=== PATIENT | male | born 1950 | race Caucasian/White ===

== ENCOUNTER 2017-08-09 14:48 | Inpatient (IN) | payer MEDICARE, BC ==
[2017-08-09] MEDS ORDERED: 0.9 % SODIUM CHLORIDE 1,000 ML BAG IV ONE (15:50)
[2017-08-09 16:42] LABS: BASO % 0.3 % (0-6); EOS % 1.4 % (0-6); GRAN % 75.8 % (47-80); HEMATOCRIT 38.1 % (42.0-52.0); HEMOGLOBIN 13.5 gm/dl (14.0-18.0); LYMPH % 15.7 % (16-45); MEAN CELL VOLUME 94.5 fl (81-97); MEAN CORPUSCULAR HGB CONC 35.4 g/dl (32-36); MEAN PLATELET VOLUME 11.5 fl (7.4-10.4); MONO % 6.8 % (0-9); PLATELET COUNT 104 K/uL (130-400); RED BLOOD COUNT 4.03 M/uL (4.40-5.70); RED CELL DISTRIBUTION WIDTH 12.9 % (11.5-14.5); WHITE BLOOD COUNT W/O DIFF 3.7 K/uL (4.2-12.2)
[2017-08-09 16:45] LABS: MEAN CORPUSCULAR HEMOGLOBIN 33.4 pg (27-33)
[2017-08-09 16:53] LABS: ACETONE,SERUM NEGATIVE (NEGATIVE)
[2017-08-09 16:57] LABS: BLOOD UREA NITROGEN 56 mg/dL (8-23); CREATININE 2.2 mg/dL (0.7-1.2); EST GLOMERULAR FILTRATION RATE 32 mL/min
[2017-08-09] MEDS ORDERED: HUMULIN R 100 UNIT/ML VIAL SQ ONE (17:11)
[2017-08-09 17:13] LABS: GLUCOSE,RANDOM 589 mg/dL (74-109)
[2017-08-09 17:35] LABS: URINE APPEARANCE CLEAR; URINE BILIRUBIN NEGATIVE (NEGATIVE); URINE BLOOD NEGATIVE (NEGATIVE); URINE COLOR YELLOW; URINE KETONE NEGATIVE (NEGATIVE); URINE LEUKOCYTE ESTERASE NEGATIVE (NEGATIVE); URINE NITRITE NEGATIVE (NEGATIVE); URINE PROTEIN NEGATIVE (NEGATIVE); URINE UROBILINOGEN 0.2 E.U./dL (0.20 - 1.00)
[2017-08-09 17:37] LABS: URINE GLUCOSE (UA) >=1000 mg/dL (NEGATIVE)
[2017-08-09 17:51] LABS: CREATININE 2.1 mg/dL (0.7-1.2)
[2017-08-09] MEDS ORDERED: INSULIN REGULAR, HUMAN 100 UNIT in 0.9 % SODIUM CHLORIDE 100ML 100 ML IV SCH ×2 (18:30)
--- NOTE | 2017-08-09 18:40 | Emergency Department Record ---
History of Present Illness - General Chief complaint: Hypergylcemia Stated complaint: HIGH BLOOD SUGAR Time Seen by Provider: 08/09/17 15:48 Source: Patient Mode of Arrival: Ambulatory Limitations: No limitations - History of Present Illness Initial comments: pt went to his kidney transplant dr and discovered he had a blood sugar of 555 and was sent here. he has no hx of diabetes. he has had increased thirst and urination. he denies any symptoms of infection Onset/Timin -: Days(s) Severity: Moderate Associated Symptoms: Denies other symptoms - Related Data Home Medications Medication Instructions Recorded Confirmed Last Taken Amlodipine Besylate [Norvasc] 10 mg PO DAILY 08/09/17 08/09/17 Unknown Ascorbic Acid [Vitamin C] 500 mg PO DAILY 08/09/17 08/09/17 Unknown Aspirin [Adult Low Dose Aspirin EC] 81 mg PO DAILY 08/09/17 08/09/17 Unknown Atenolol [Atenolol] 100 mg PO DAILY 08/09/17 08/09/17 Unknown Calcitriol 0.25 mcg PO ASDIR 08/09/17 08/09/17 Unknown Cholecalciferol (Vitamin D3) 1,000 unit PO DAILY 08/09/17 08/09/17 Unknown [Vitamin D3] Febuxostat [Uloric] 40 mg PO DAILY 08/09/17 08/09/17 Unknown Lisinopril [Lisinopril] 40 mg PO DAILY 08/09/17 08/09/17 Unknown Magnesium Oxide [Magnesium] 250 mg PO DAILY 08/09/17 08/09/17 Unknown Mycophenolate Mofetil 500 mg PO BID 08/09/17 08/09/17 Unknown Omeprazole 20 mg PO DAILY 08/09/17 08/09/17 Unknown Pravastatin Sodium [Pravachol] 20 mg PO DAILY 08/09/17 08/09/17 Unknown Tacrolimus [Prograf] 0.5 mg PO QHS 08/09/17 08/09/17 Unknown Tacrolimus [Prograf] 1 mg PO DAILY 08/09/17 08/09/17 Unknown Allergies Allergy/AdvReac Type Severity Reaction Status Date / Time No Known Drug Allergies Allergy Verified 08/09/17 15:02 Travel Screening - Travel/Exposure Within Last 30 Days Have you traveled within the last 30 days?: No Review of Systems Reviewed: No additional complaints except as noted below Constitutional: Reports: As per HPI. Denies: Chills, Fever, Malaise, Night sweats, Weakness, Weight change Eyes: Reports: As per HPI. Denies: Eye discharge, Eye pain, Photophobia, Vision change ENT: Reports: As per HPI. Denies: Congestion, Dental pain, Ear pain, Epistaxis , Hearing loss, Throat pain Respiratory: Reports: As per HPI. Denies: Cough, Dyspnea, Hemoptysis, Stridor, Wheezes Cardiovascular: Reports: As per HPI. Denies: Arrhythmia, Chest pain, Dyspnea on exertion, Edema, Murmurs, Orthopnea, Palpitations, Paroxysmal nocturnal dyspnea, Rheumatic Fever, Syncope Endocrine: Reports: As per HPI. Denies: Fatigue, Heat or cold intolerance, Polydipsia, Polyuria Gastrointestinal: Reports: As per HPI. Denies: Abdominal pain, Constipation, Diarrhea, Hematemesis, Hematochezia, Melena, Nausea, Vomiting Genitourinary: Reports: As per HPI. Denies: Dysuria, Frequency, Hematuria, Incontinence, Retention, Testicular pain, Testicular mass, Urgency Musculoskeletal: Reports: As per HPI. Denies: Arthralgia, Back pain, Gout, Joint swelling, Myalgia, Neck pain Skin: Reports: As per HPI. Denies: Bruising, Change in color, Change in hair/ nails, Lesions, Pruritus, Rash Neurological: Reports: As per HPI. Denies: Abnormal gait, Confusion, Headache, Numbness, Paresthesias, Seizure, Tingling, Tremors, Vertigo, Weakness Psychiatric: Reports: As per HPI. Denies: Anxiety, Auditory hallucinations, Depression, Homicidal thoughts, Suicidal thoughts, Visual hallucinations Hematological/Lymphatic: Reports: As per HPI. Denies: Anemia, Blood Clots, Easy bleeding, Easy bruising, Swollen glands Past Medical History - SOCIAL HISTORY Smoking Status: Never smoker Alcohol Use: None Drug Use: None - RESPIRATORY Hx Respiratory Disorders: No - CARDIOVASCULAR Hx Cardio Disorders: No - NEURO Hx Neuro Disorders: No - GI Hx GI Disorders: No - Hx Genitourinary Disorders: Yes Hx Renal Disease: Yes (kidney transplant) - ENDOCRINE Hx Endocrine Disorders: No - MUSCULOSKELETAL Hx Musculoskeletal Disorders: No - PSYCH Hx Psych Problems: No - HEMATOLOGY/ONCOLOGY Hx Hematology/Oncology Disorders: No Family Medical History Any Significant Family History?: Yes Hx Kidney Disease: Mother, Brother/Sister Physical Exam - General General Appearance: Alert, Oriented x3, Cooperative, Mild distress - Head Head exam: Normal inspection - Eye Eye exam: Normal appearance, PERRL, EOMI Pupils: Normal accommodation - ENT ENT exam: Normal exam, Mucous membranes dry, Normal external ear exam, Normal orophraynx Ear exam: Normal external inspection. negative: External canal tenderness Nasal Exam: Normal inspection. negative: Discharge, Sinus tenderness Mouth exam: Normal external inspection, Tongue normal Teeth exam: Normal inspection. negative: Dental caries Throat exam: Normal inspection. negative: Tonsillar erythema, Tonsillar exudate - Neck Neck exam: Normal inspection, Full ROM. negative: Tenderness - Respiratory Respiratory exam: Normal lung sounds bilaterally. negative: Respiratory distress - Cardiovascular Cardiovascular Exam: Regular rate, Normal rhythm, Normal heart sounds - GI/Abdominal GI/Abdominal exam: Soft, Normal bowel sounds. negative: Tenderness - Rectal Rectal exam: Deferred - exam: Deferred - Extremities Extremities exam: Normal inspection, Full ROM, Normal capillary refill. negative: Tenderness - Back Back exam: Reports: Normal inspection, Full ROM. 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 ] Respiratory 13 16 Rate Blood Pressure 141/106 Blood Pressure 130/56 [Right Arm] Pulse Ox 97 99 Medical Decision Making - Lab Data Result diagrams: 08/09/17 16:35 08/09/17 17:31 Lab Results 08/09/17 08/09/17 08/09/17 Range/Units 16:35 16:35 16:35 WBC 3.7 L (4.2-12.2) K/uL RBC 4.03 L (4.40-5.70) M/uL Hgb 13.5 L (14.0-18.0) gm/dl Hct 38.1 L (42.0-52.0) % MCV 94.5 (81-97) fl MCH 33.4 H (27-33) pg MCHC 35.4 (32-36) g/dl RDW 12.9 (11.5-14.5) % Plt Count 104 L (130-400) K/uL MPV 11.5 H (7.4-10.4) fl Gran % 75.8 (47-80) % Lymphocytes % 15.7 L (16-45) % Monocytes % 6.8 (0-9) % Eosinophils % 1.4 (0-6) % Basophils % 0.3 (0-6) % VBG pH 7.30 L (7.33-7.43) Sodium 130 L (136-145) mmol/L Potassium 6.7 H* (3.4-4.5) mmol/L Chloride 96 L (98-107) mmol/L Carbon Dioxide 21.0 L (22-29) mmol/L Anion Gap 13.0 (7-16) BUN 56 H (8-23) mg/dL Creatinine 2.2 H (0.7-1.2) mg/dL Estimated GFR 32 mL/min Random Glucose 589 H* (74-109) mg/dL Calcium 10.8 H (8.8-10.2) mg/dL NT-Pro-B Natriuret Pep 406.30 H (<125) pg/mL Urine Color Urine Appearance Urine pH (5.0-8.0) Ur Specific [place] (1.002-1.030) Urine Protein (NEGATIVE) Urine Glucose (UA) (NEGATIVE) Urine Ketones (NEGATIVE) Urine Blood (NEGATIVE) Urine Nitrite (NEGATIVE) Urine Bilirubin (NEGATIVE) Urine Urobilinogen (0.20 - 1.00) E.U./dL Ur Leukocyte Esterase (NEGATIVE) Acetone, Qual Negative (NEGATIVE) 08/09/17 08/09/17 Range/Units 17:31 17:35 WBC (4.2-12.2) K/uL RBC (4.40-5.70) M/uL Hgb (14.0-18.0) gm/dl Hct (42.0-52.0) % MCV (81-97) fl MCH (27-33) pg MCHC (32-36) g/dl RDW (11.5-14.5) % Plt Count (130-400) K/uL MPV (7.4-10.4) fl Gran % (47-80) % Lymphocytes % (16-45) % Monocytes % (0-9) % Eosinophils % (0-6) % Basophils % (0-6) % VBG pH (7.33-7.43) Sodium 133 L (136-145) mmol/L Potassium 5.5 H (3.4-4.5) mmol/L Chloride 100 (98-107) mmol/L Carbon Dioxide 21.0 L (22-29) mmol/L Anion Gap 12.0 (7-16) BUN 54 H (8-23) mg/dL Creatinine 2.1 H (0.7-1.2) mg/dL Estimated GFR 34 mL/min Random Glucose 541 H* (74-109) mg/dL Calcium 10.1 (8.8-10.2) mg/dL NT-Pro-B Natriuret Pep (<125) pg/mL Urine Color Yellow Urine Appearance Clear Urine pH 6.0 (5.0-8.0) Ur Specific [place] 1.010 (1.002-1.030) Urine Protein Negative (NEGATIVE) Urine Glucose (UA) >=1000 mg/dl H (NEGATIVE) Urine Ketones Negative (NEGATIVE) Urine Blood Negative (NEGATIVE) Urine Nitrite Negative (NEGATIVE) Urine Bilirubin Negative (NEGATIVE) Urine Urobilinogen 0.2 (0.20 - 1.00) E.U./dL Ur Leukocyte Esterase Negative (NEGATIVE) Acetone, Qual (NEGATIVE) Disposition Disposition: Admit Clinical Impression: New onset type 2 diabetes mellitus Disposition: Still a Patient at [facility] Decision to Admit: Admit from ER Decision to Admit Date: 08/09/17 Decision to Admit Time: 18:31 Quality - Quality Measures Quality Measures: N/A - Blood Pressure Screening Does Patient Have Any of the Following: No Blood Pressure Classification: Hypertensive Reading Systolic Measurement: 141 Diastolic Measurement: 106 Screening for High Blood Pressure: < First Hypertensive BP, F/U Documented > [ [id number]] First Hypertensive Follow-up Interventions: Follow-up with rescreen GT 1 day and LT 4 weeks.
[2017-08-09] MEDS ORDERED: ACETAMINOPHEN 500 MG TABLET PO PRN (19:10)
[2017-08-09] MEDS ORDERED: CALCITRIOL 0.25 MCG PO SCH (19:10)
[2017-08-09] MEDS ORDERED: 0.9 % SODIUM CHLORIDE 1000ML 1,000 ML IV PRN (19:10)
[2017-08-09] MEDS ORDERED: MYCOPHENOLATE 500 MG PO SCH (19:45)
[2017-08-09 20:52] LABS: CREATININE 1.9 mg/dL (0.7-1.2)
[2017-08-09] MEDS ORDERED: OMEPRAZOLE 20 MG PO SCH (22:00)
[2017-08-09] MEDS ORDERED: PROGRAF 0.5 MG PO SCH (22:00)
[2017-08-09] MEDS ORDERED: ATENOLOL 50 MG TABLET PO SCH (22:00)
[2017-08-09] MEDS ORDERED: MAGNESIUM OXIDE 400 MG TABLET PO SCH (22:00)
[2017-08-09] MEDS ORDERED: SIMVASTATIN 10MG TABLET PO SCH (22:00)
[2017-08-09] MEDS ORDERED: PATIENT OWN MED: PO SCH (22:00)
[2017-08-09] MEDS ORDERED: ASPIRIN 81 MG TABEC PO SCH (22:00)
[2017-08-09] MEDS: MAGNESIUM 500 MG PO SCH (22:30)
[2017-08-09] MEDS: VITAMIN C 500 MG PO SCH (22:30)
[2017-08-09] MEDS: PRAVASTATIN 20 MG PO SCH (22:30)
[2017-08-09] MEDS: TACROLIMUS 0.5 MG MC SCH (22:30)
[2017-08-09] MEDS: ASPIRIN 81 MG PO SCH (22:30)
[2017-08-09] MEDS: MYCOPHENOLATE 500 MG PO SCH (22:30)
[2017-08-09] MEDS: ULORIC 40 MG PO SCH (22:30)
[2017-08-09] MEDS: OMEPRAZOLE 20 MG PO SCH (22:30)
[2017-08-09] MEDS: ATENOLOL 100 MG PO SCH (22:30)
[2017-08-09 22:35] LABS: CREATININE 1.9 mg/dL (0.7-1.2)
[2017-08-10] MEDS ORDERED: DEXTROSE 5 %-0.45 % NACL 1,000 ML IV PRN (01:04)
[2017-08-10] MEDS: LEVEMIR FLEXTOUCH 100 UNIT/ML INSULIN PEN SQ SCH ×2 (01:16→22:42)
[2017-08-10] MEDS ORDERED: DEXTROSE 50 % IVP 50 ML DISP.SYRIN IVP PRN (01:30)
[2017-08-10 01:35] LABS: CREATININE 1.8 mg/dL (0.7-1.2)
[2017-08-10] MEDS ORDERED: PANTOPRAZOLE SODIUM 40 MG TABLET PO SCH (07:00)
[2017-08-10 07:09] LABS: CREATININE 1.7 mg/dL (0.7-1.2)
[2017-08-10] MEDS ORDERED: LISINOPRIL 20 MG TABLET PO SCH (10:00)
[2017-08-10] MEDS ORDERED: ULORIC 40 MG PO SCH (10:00)
[2017-08-10] MEDS ORDERED: ATENOLOL 50 MG TABLET PO SCH (10:00)
[2017-08-10] MEDS ORDERED: ASPIRIN 81 MG TABEC PO SCH (10:00)
[2017-08-10] MEDS ORDERED: Non-Formulary MISC (Amlodipine Besylate [Norvasc] 10 MG) PO SCH (10:00)
[2017-08-10] MEDS ORDERED: AMLODIPINE BESYLATE 5MG TAB PO SCH (10:00)
[2017-08-10] MEDS ORDERED: PROGRAF 1 MG PO SCH (10:00)
--- NOTE | 2017-08-10 10:11 | History & Physical ---
History of Present Illness - Date of Service Date of Service for History & Physical: 08/10/17 - History of Present Illness Admitting Diagnosis: new onset diabetes History of Present Illness: Mr. 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 The patient does not have any history of diabetes mellitus and is not on steroids. He has noticed increasing thirst and urination over the past several weeks but denies any other symptoms. On arrival to the ED his serum glucose was > 500 and he had marked glucosuria but no ketones and normal anion gap. The patient was started on insulin drip with titration, IV fluids and admitted for further observation. Travel Screening - Travel/Exposure Within Last 30 Days Have you traveled within the last 30 days?: No - Travel/Exposure Within Last Year Have you traveled outside the [place] in the last year?: No - Additonal Travel Details Have you been exposed to anyone with a communicable illness?: No - Travel Symptoms Symptom Screening: None Review of Systems Constitutional: Reports: As per HPI. Denies: Chills, Fever, Malaise, Night sweats, Weakness, Weight change Eyes: Reports: As per HPI. Denies: Eye discharge, Eye pain, Photophobia, Vision change ENT: Reports: As per HPI. Denies: Congestion, Dental pain, Ear pain, Epistaxis , Hearing loss, Throat pain Respiratory: Reports: As per HPI. Denies: Cough, Dyspnea, Hemoptysis, Stridor, Wheezes Cardiovascular: Reports: As per HPI. Denies: Arrhythmia, Chest pain, Dyspnea on exertion, Edema, Murmurs, Orthopnea, Palpitations, Paroxysmal nocturnal dyspnea, Rheumatic Fever, Syncope Endocrine: Reports: As per HPI. Denies: Fatigue, Heat or cold intolerance, Polydipsia, Polyuria Gastrointestinal: Reports: As per HPI. Denies: Abdominal pain, Constipation, Diarrhea, Hematemesis, Hematochezia, Melena, Nausea, Vomiting Genitourinary: Reports: As per HPI. Denies: Dysuria, Frequency, Hematuria, Incontinence, Retention, Testicular pain, Testicular mass, Urgency Musculoskeletal: Reports: As per HPI. Denies: Arthralgia, Back pain, Gout, Joint swelling, Myalgia, Neck pain Skin: Reports: As per HPI. Denies: Bruising, Change in color, Change in hair/ nails, Lesions, Pruritus, Rash Neurological: Reports: As per HPI. Denies: Abnormal gait, Confusion, Headache, Numbness, Paresthesias, Seizure, Tingling, Tremors, Vertigo, Weakness Psychiatric: Reports: As per HPI. Denies: Anxiety, Auditory hallucinations, Depression, Homicidal thoughts, Suicidal thoughts, Visual hallucinations Hematological/Lymphatic: Reports: As per HPI. Denies: Anemia, Blood Clots, Easy bleeding, Easy bruising, Swollen glands Past Medical History - SOCIAL HISTORY Smoking Status: Never smoker Alcohol Use: None Drug Use: None - RESPIRATORY Hx Respiratory Disorders: No - CARDIOVASCULAR Hx Cardio Disorders: No - NEURO Hx Neuro Disorders: No - GI Hx GI Disorders: No - Hx Genitourinary Disorders: Yes Hx Renal Disease: Yes (kidney transplant) - ENDOCRINE Hx Endocrine Disorders: No - MUSCULOSKELETAL Hx Musculoskeletal Disorders: No - PSYCH Hx Psych Problems: No - HEMATOLOGY/ONCOLOGY Hx Hematology/Oncology Disorders: No Family Medical History Any Significant Family History?: Yes Hx Kidney Disease: Father, Brother/Sister H&P Meds/Allergies - Allergies Allergies: Allergies Allergy/AdvReac Type Severity Reaction Status Date / Time No Known Drug Allergies Allergy Verified 08/09/17 15:02 - Home Medications Home Medications Medication Instructions Recorded Confirmed Last Taken Amlodipine Besylate [Norvasc] 10 mg PO DAILY 08/09/17 08/09/17 Unknown Ascorbic Acid [Vitamin C] 500 mg PO DAILY 08/09/17 08/09/17 Unknown Aspirin [Adult Low Dose Aspirin EC] 81 mg PO DAILY 08/09/17 08/09/17 Unknown Atenolol [Atenolol] 100 mg PO DAILY 08/09/17 08/09/17 Unknown Calcitriol 0.25 mcg PO ASDIR 08/09/17 08/09/17 Unknown Cholecalciferol (Vitamin D3) 1,000 unit PO DAILY 08/09/17 08/09/17 Unknown [Vitamin D3] Febuxostat [Uloric] 40 mg PO DAILY 08/09/17 08/09/17 Unknown Lisinopril [Lisinopril] 40 mg PO DAILY 08/09/17 08/09/17 Unknown Magnesium Oxide [Magnesium] 250 mg PO DAILY 08/09/17 08/09/17 Unknown Mycophenolate Mofetil 500 mg PO BID 08/09/17 08/09/17 Unknown Omeprazole 20 mg PO DAILY 08/09/17 08/09/17 Unknown Pravastatin Sodium [Pravachol] 20 mg PO DAILY 08/09/17 08/09/17 Unknown Tacrolimus [Prograf] 0.5 mg PO QHS 08/09/17 08/09/17 Unknown Tacrolimus [Prograf] 1 mg PO DAILY 08/09/17 08/09/17 Unknown - Active Medications Active Medications: Current Medications Acetaminophen (Tylenol 500mg Tab) 1,000 mg PO Q6H PRN PRN Reason: PAIN/TEMP Dextrose () 50 ml IVP NOW PRN PRN Reason: hypoglycemica Insulin Human Regular 100 unit (/ Sodium Chloride) 101 mls @ 2.02 mls/hr IV TITRATE [facility]; 2 UNITS/HR PRN Reason: Protocol Last Titration: 08/10/17 05:06 Dose: 3.46 units/hr, 3.5 mls/hr Sodium Chloride () 1,000 mls @ 125 mls/hr IV .Q8H PRN PRN Reason: LARGE VOLUME IV Last Infusion: 08/10/17 01:14 Dose: 0 mls/hr Dextrose/Sodium Chloride () 1,000 mls @ 125 mls/hr IV .Q8H PRN PRN Reason: LARGE VOLUME IV Last Admin: 08/10/17 01:15 Dose: 125 mls/hr Insulin Detemir (Levemir Flextouch) 25 unit SQ QHS [facility] Last Admin: 08/10/17 01:16 Dose: 25 unit Non-Formulary Medication (Calcitriol [Calcitriol]) 0.25 mcg PO ASDIR [facility] Patient Own Med: (Mycophenylate 500mg) 1 each PO BID [facility] Last Admin: 08/09/17 22:30 Dose: 1 each Patient Own Med: (Atenolol 100mg) 1 each PO QHS [facility] Last Admin: 08/09/17 22:30 Dose: 1 each Patient Own Med: (Tacrolimus 0.5 Mg) 1 each MC QHS [facility] Last Admin: 08/09/17 22:30 Dose: 1 each Patient Own Med: (Uloric 40mg) 1 each PO QHS [facility] Last Admin: 08/09/17 22:30 Dose: 1 each Patient Own Med: (Omeprazole 20mg) 1 each PO QHS [facility] Last Admin: 08/09/17 22:30 Dose: 1 each Patient Own Med: (Aspirin 81mg) 1 each PO QHS [facility] Last Admin: 08/09/17 22:30 Dose: 1 each Patient Own Med: (Pravastatin 20mg) 1 each PO QHS [facility] Last Admin: 08/09/17 22:30 Dose: 1 each Patient Own Med: (Magnesium 500mg Po) 1 each PO QHS [facility] Last Admin: 08/09/17 22:30 Dose: 1 each Patient Own Med: (Vitamin C 500mg) 1 each PO QHS [facility] Last Admin: 08/09/17 22:30 Dose: 1 each Patient Own Med: (Tacrolimus 1mg) 1 each PO DAILY [facility] Patient Own Med: (Amlodipine 10mg) 1 each PO DAILY [facility] Patient Own Med: (Lisinopril 20mg) 1 each PO DAILY [facility] Patient Own Med: (Vitamin D-3 1000 Iu) 1 each PO DAILY [facility] Physical Exam - Vital Signs Vital Signs: Vital Signs - Last 24 Hrs Temp Pulse Resp BP Pulse Ox 08/10/17 08:18 98.5 F 53 L 18 132/62 96 08/10/17 04:12 98.6 F 49 L 18 132/65 96 08/10/17 01:00 51 L 18 138/74 95 08/09/17 22:00 56 L 18 150/65 96 08/09/17 21:00 18 - General General Appearance: Alert, Oriented x3, Cooperative, Mild distress Limitations: No limitations - Head Head exam: Normal inspection - Eye Eye exam: Normal appearance, PERRL, EOMI Pupils: Normal accommodation - ENT ENT exam: Normal exam, Mucous membranes dry, Normal external ear exam, Normal orophraynx Ear exam: Normal external inspection. negative: External canal tenderness Nasal Exam: Normal inspection. negative: Discharge, Sinus tenderness Mouth exam: Normal external inspection, Tongue normal Teeth exam: Normal inspection. negative: Dental caries Throat exam: Normal inspection. negative: Tonsillar erythema, Tonsillar exudate - Neck Neck exam: Normal inspection, Full ROM. negative: Tenderness - Respiratory Respiratory exam: Normal lung sounds bilaterally. negative: Respiratory distress - Cardiovascular Cardiovascular Exam: Regular rate, Normal rhythm, Normal heart sounds - GI/Abdominal GI/Abdominal exam: Soft, Normal bowel sounds. negative: Tenderness - Rectal Rectal exam: Deferred - exam: Deferred - Extremities Extremities exam: Normal inspection, Full ROM, Normal capillary refill. negative: Tenderness - Back Back exam: Reports: Normal inspection, Full ROM. Denies: Muscle spasm, Rash noted, Tenderness - Neurological Neurological exam: Alert, CN II-XII intact, Normal gait, Oriented X3 - Psychiatric Psychiatric exam: Normal affect, Normal mood - Skin Skin exam: Dry, Intact, Normal color, Warm Results - Labs Result Diagrams: 08/09/17 16:35 08/10/17 06:20 Labs Last 24 Hours: Laboratory Results - last 24 hr 08/09/17 08/09/17 08/09/17 19:38 20:20 21:44 VBG pH 7.37 Sodium 136 Potassium 4.8 H Chloride 102 Carbon Dioxide 18.0 L Anion Gap 16.0 BUN 52 H Creatinine 1.9 H Estimated GFR 38 POC Glucose 407 H 325 H Random Glucose 398 H Calcium 10.4 H 08/09/17 08/09/17 08/09/17 22:10 22:55 22:55 VBG pH 7.38 Sodium 137 Potassium 4.4 Chloride 103 Carbon Dioxide 19.0 L Anion Gap 15.0 BUN 50 H Creatinine 1.9 H Estimated GFR 38 POC Glucose Cancelled 259 H Random Glucose 328 H Calcium 10.5 H 08/09/17 08/10/17 08/10/17 23:53 00:30 01:13 VBG pH 7.47 H Sodium 139 Potassium 4.7 H Chloride 108 H Carbon Dioxide 14.0 L Anion Gap 17.0 H BUN 47 H Creatinine 1.8 H Estimated GFR 40 POC Glucose 273 H 236 H Random Glucose 259 H Calcium 10.1 08/10/17 08/10/17 08/10/17 02:04 03:24 04:11 VBG pH Sodium Potassium Chloride Carbon Dioxide Anion Gap BUN Creatinine Estimated GFR POC Glucose 206 H 205 H 215 H Random Glucose Calcium 08/10/17 08/10/17 05:03 06:20 VBG pH Sodium 141 Potassium 4.4 Chloride 108 H Carbon Dioxide 19.0 L Anion Gap 14.0 BUN 43 H Creatinine 1.7 H Estimated GFR 43 POC Glucose 190 H Random Glucose 207 H Calcium 10.1 VTE H&P Assessment - Risk for VTE Risk for VTE: No Risk Level: Moderate Risk Assessment Date: 08/10/17 Risk Assessment Time: 10:23 VTE Orders Placed or Will Be Placed: Yes Plan - Detailed Diagnosis and Plan (1) New onset type 2 diabetes mellitus Current Visit: Yes Status: Acute Base Code: E11.9 - TYPE 2 DIABETES MELLITUS WITHOUT COMPLICATIONS Comment: - > 1k glucosuria, no serum ketones, anion gap 14 - titrate off insulin drip, cont Levemir @ 30 units QHS, moderate dose sliding scale - Q2H labs, accuchecks, diabetic diet - d/c on Levemir 30 units QHS, glucometer order, diabetic education (2) Hypertension Current Visit: Yes Status: Acute Base Code: I10 - ESSENTIAL (PRIMARY) HYPERTENSION Comment: - controlled on Norvasc 10mg and Atenolol 50mg QD (3) S/P renal autotransplant Current Visit: Yes Status: Acute Base Code: Z94.0 - KIDNEY TRANSPLANT STATUS Comment: - s/p transplantion 2009. - on Cellcept 500mg BID and tacrolimus 1mg qam, 0.5mg qpm daily - Bun/Cr - 43/1.7, decreased from 1.9. (4) Polycystic kidney disease Current Visit: Yes Status: Acute Base Code: Q61.3 - POLYCYSTIC KIDNEY, UNSPECIFIED (5) DVT (deep venous thrombosis) Current Visit: Yes Status: Acute Base Code: I82.409 - ACUTE EMBOLISM AND THOMBOS UNSP DEEP VN UNSP LOWER EXTREMITY Comment: - SCDs, ambulate as tolerated (6) Full code status Current Visit: Yes Status: Acute Base Code: Z78.9 - OTHER SPECIFIED HEALTH STATUS - Disposition titrate drip and cont lab checks q2H. If elevated then keep pt overnight and upgrade to full admit. If stable d/c home with DM education by nursing and scripts for glucometer and levemir flex pen. F/U in office in one week
[2017-08-10] MEDS: MYCOPHENOLATE 500 MG PO SCH ×2 (10:26→22:38)
[2017-08-10] MEDS: VITAMIN D3 PO SCH (10:27)
[2017-08-10] MEDS: AMLODIPINE 10 MG PO SCH (10:28)
[2017-08-10] MEDS: LISINOPRIL 20 MG PO SCH (10:28)
[2017-08-10] MEDS: TACROLIMUS 1 MG PO SCH (10:28)
[2017-08-10] MEDS: NOVOLOG FLEXPEN (INSULIN ASPART) 100 UNITS/ML SQ SCH (17:44)
[2017-08-10] MEDS ORDERED: PATIENT OWN MED: MC SCH (22:00)
[2017-08-10] MEDS: TACROLIMUS 0.5 MG MC SCH (22:35)
[2017-08-10] MEDS: ASPIRIN 81 MG PO SCH (22:35)
[2017-08-10] MEDS: ATENOLOL 100 MG PO SCH (22:37)
[2017-08-10] MEDS: MAGNESIUM 500 MG PO SCH (22:38)
[2017-08-10] MEDS: OMEPRAZOLE 20 MG PO SCH (22:39)
[2017-08-10] MEDS: PRAVASTATIN 20 MG PO SCH (22:39)
[2017-08-10] MEDS: ULORIC 40 MG PO SCH (22:39)
[2017-08-10] MEDS: VITAMIN C 500 MG PO SCH (22:40)
[2017-08-11 06:28] LABS: CREATININE 1.7 mg/dL (0.7-1.2)
[2017-08-11] MEDS: NOVOLOG FLEXPEN (INSULIN ASPART) 100 UNITS/ML SQ SCH (08:10)
--- NOTE | 2017-08-11 09:42 | Discharge Summary ---
Providers Date of admission: 08/09/17 19:08 Attending physician: Kurt Moyer Physical Exam - Vital Signs Vital Signs: Vital Signs - Last 24 Hrs Temp Pulse Resp BP Pulse Ox 08/11/17 08:59 98.2 F 53 L 18 132/63 98 08/11/17 06:00 98.0 F 51 L 18 137/75 97 08/10/17 22:30 60 08/10/17 20:00 98.2 F 53 L 18 137/72 96 08/10/17 14:00 97.7 F 55 L 16 135/71 98 - General General Appearance: Alert, Oriented x3, Cooperative, Mild distress Limitations: No limitations - Head Head exam: Normal inspection - Eye Eye exam: Normal appearance, PERRL, EOMI Pupils: Normal accommodation - ENT ENT exam: Normal exam, Mucous membranes dry, Normal external ear exam, Normal orophraynx Ear exam: Normal external inspection. negative: External canal tenderness Nasal Exam: Normal inspection. negative: Discharge, Sinus tenderness Mouth exam: Normal external inspection, Tongue normal Teeth exam: Normal inspection. negative: Dental caries Throat exam: Normal inspection. negative: Tonsillar erythema, Tonsillar exudate - Neck Neck exam: Normal inspection, Full ROM. negative: Tenderness - Respiratory Respiratory exam: Normal lung sounds bilaterally. negative: Respiratory distress - Cardiovascular Cardiovascular Exam: Regular rate, Normal rhythm, Normal heart sounds - GI/Abdominal GI/Abdominal exam: Soft, Normal bowel sounds. negative: Tenderness - Rectal Rectal exam: Deferred - exam: Deferred - Extremities Extremities exam: Normal inspection, Full ROM, Normal capillary refill. negative: Tenderness - Back Back exam: Reports: Normal inspection, Full ROM. Denies: Muscle spasm, Rash noted, Tenderness - Neurological Neurological exam: Alert, CN II-XII intact, Normal gait, Oriented X3 - Psychiatric Psychiatric exam: Normal affect, Normal mood - Skin Skin exam: Dry, Intact, Normal color, Warm Hospitalization - Hospitalization Admission Diagnosis: new onset diabetes - Problem List/Discharge Diagnosis (1) New onset type 2 diabetes mellitus Current Visit: Yes Status: Acute Base Code: E11.9 - TYPE 2 DIABETES MELLITUS WITHOUT COMPLICATIONS Comment: - > 1k glucosuria, no serum ketones, anion gap 14 - titrate off insulin drip, cont Levemir @ 30 units QHS, moderate dose sliding scale - Q2H labs, accuchecks, diabetic diet - d/c on Levemir 30 units QHS, glucometer order, diabetic education (2) Hypertension Current Visit: Yes Status: Acute Base Code: I10 - ESSENTIAL (PRIMARY) HYPERTENSION Comment: - controlled on Norvasc 10mg and Atenolol 50mg QD (3) S/P renal autotransplant Current Visit: Yes Status: Acute Base Code: Z94.0 - KIDNEY TRANSPLANT STATUS Comment: - s/p transplantion 2009. - on Cellcept 500mg BID and tacrolimus 1mg qam, 0.5mg qpm daily - Bun/Cr - 43/1.7, decreased from 1.9. (4) Polycystic kidney disease Current Visit: Yes Status: Acute Base Code: Q61.3 - POLYCYSTIC KIDNEY, UNSPECIFIED (5) DVT (deep venous thrombosis) Current Visit: Yes Status: Acute Base Code: I82.409 - ACUTE EMBOLISM AND THOMBOS UNSP DEEP VN UNSP LOWER EXTREMITY Comment: - SCDs, ambulate as tolerated (6) Full code status Current Visit: Yes Status: Acute Base Code: Z78.9 - OTHER SPECIFIED HEALTH STATUS - Disposition titrate drip and cont lab checks q2H. If elevated then keep pt overnight and upgrade to full admit. If stable d/c home with DM education by nursing and scripts for glucometer and levemir flex pen. F/U in office in one week - Hospitalization Course Abnormal Labs: Abnormal Lab Results 08/09/17 08/09/17 08/09/17 Range/Units 19:38 20:20 21:44 VBG pH (7.33-7.43) Potassium 4.8 H (3.4-4.5) mmol/L Chloride (98-107) mmol/L Carbon Dioxide 18.0 L (22-29) mmol/L Anion Gap (7-16) BUN 52 H (8-23) mg/dL Creatinine 1.9 H (0.7-1.2) mg/dL POC Glucose 407 H 325 H (70-110) mg/dL Random Glucose 398 H (74-109) mg/dL Hemoglobin A1c (4.0-6.00) % Calcium 10.4 H (8.8-10.2) mg/dL 08/09/17 08/09/17 08/09/17 Range/Units 22:10 22:55 23:53 VBG pH (7.33-7.43) Potassium (3.4-4.5) mmol/L Chloride (98-107) mmol/L Carbon Dioxide 19.0 L (22-29) mmol/L Anion Gap (7-16) BUN 50 H (8-23) mg/dL Creatinine 1.9 H (0.7-1.2) mg/dL POC Glucose 259 H 273 H (70-110) mg/dL Random Glucose 328 H (74-109) mg/dL Hemoglobin A1c (4.0-6.00) % Calcium 10.5 H (8.8-10.2) mg/dL 08/10/17 08/10/17 08/10/17 Range/Units 00:30 01:13 02:04 VBG pH 7.47 H (7.33-7.43) Potassium 4.7 H (3.4-4.5) mmol/L Chloride 108 H (98-107) mmol/L Carbon Dioxide 14.0 L (22-29) mmol/L Anion Gap 17.0 H (7-16) BUN 47 H (8-23) mg/dL Creatinine 1.8 H (0.7-1.2) mg/dL POC Glucose 236 H 206 H (70-110) mg/dL Random Glucose 259 H (74-109) mg/dL Hemoglobin A1c (4.0-6.00) % Calcium (8.8-10.2) mg/dL 08/10/17 08/10/17 08/10/17 Range/Units 03:24 04:11 05:03 VBG pH (7.33-7.43) Potassium (3.4-4.5) mmol/L Chloride (98-107) mmol/L Carbon Dioxide (22-29) mmol/L Anion Gap (7-16) BUN (8-23) mg/dL Creatinine (0.7-1.2) mg/dL POC Glucose 205 H 215 H 190 H (70-110) mg/dL Random Glucose (74-109) mg/dL Hemoglobin A1c (4.0-6.00) % Calcium (8.8-10.2) mg/dL 08/10/17 08/10/17 08/10/17 Range/Units 06:20 09:15 10:15 VBG pH (7.33-7.43) Potassium (3.4-4.5) mmol/L Chloride 108 H (98-107) mmol/L Carbon Dioxide 19.0 L (22-29) mmol/L Anion Gap (7-16) BUN 43 H (8-23) mg/dL Creatinine 1.7 H (0.7-1.2) mg/dL POC Glucose 232 H 269 H (70-110) mg/dL Random Glucose 207 H (74-109) mg/dL Hemoglobin A1c (4.0-6.00) % Calcium (8.8-10.2) mg/dL 08/10/17 08/10/17 08/10/17 Range/Units 11:40 14:40 17:25 VBG pH (7.33-7.43) Potassium (3.4-4.5) mmol/L Chloride (98-107) mmol/L Carbon Dioxide (22-29) mmol/L Anion Gap (7-16) BUN (8-23) mg/dL Creatinine (0.7-1.2) mg/dL POC Glucose 252 H 230 H 245 H (70-110) mg/dL Random Glucose (74-109) mg/dL Hemoglobin A1c (4.0-6.00) % Calcium (8.8-10.2) mg/dL 08/10/17 08/11/17 08/11/17 Range/Units 22:04 05:50 05:50 VBG pH (7.33-7.43) Potassium 4.7 H (3.4-4.5) mmol/L Chloride (98-107) mmol/L Carbon Dioxide 21.0 L (22-29) mmol/L Anion Gap (7-16) BUN 35 H (8-23) mg/dL Creatinine 1.7 H (0.7-1.2) mg/dL POC Glucose 201 H (70-110) mg/dL Random Glucose 245 H (74-109) mg/dL Hemoglobin A1c 10.70 H (4.0-6.00) % Calcium (8.8-10.2) mg/dL Discharge Medications - Discharge Medications Prescriptions: Insulin Detemir [Levemir Flextouch] 30 unit SQ QHS #1 syringe Alcohol Antiseptic Pads [Alcohol Swabs] 1 each TP TID #90 med..pad Blood Sugar Diagnostic [Accu-Chek Guide Test Strip] 1 each MC TID #90 strip Blood-Glucose Meter [Accu-Chek Guide Monitor System] 1 each MC TID #1 each Glipizide [Glucotrol Xl] 2.5 mg PO DAILY #30 tab.er.24 Home Medications: Ambulatory Orders Amlodipine Besylate [Norvasc] 10 mg PO DAILY 08/09/17 [Last Taken Unknown] Ascorbic Acid [Vitamin C] 500 mg PO DAILY 08/09/17 [Last Taken Unknown] Aspirin [Adult Low Dose Aspirin EC] 81 mg PO DAILY 08/09/17 [Last Taken Unknown] Atenolol 100 mg PO DAILY 08/09/17 [Last Taken Unknown] Calcitriol 0.25 mcg PO ASDIR 08/09/17 [Last Taken Unknown] Cholecalciferol (Vitamin D3) [Vitamin D3] 1,000 unit PO DAILY 08/09/17 [Last Taken Unknown] Febuxostat [Uloric] 40 mg PO DAILY 08/09/17 [Last Taken Unknown] Lisinopril 40 mg PO DAILY 08/09/17 [Last Taken Unknown] Magnesium Oxide [Magnesium] 250 mg PO DAILY 08/09/17 [Last Taken Unknown] Mycophenolate Mofetil 500 mg PO BID 08/09/17 [Last Taken Unknown] Omeprazole 20 mg PO DAILY 08/09/17 [Last Taken Unknown] Pravastatin Sodium [Pravachol] 20 mg PO DAILY 08/09/17 [Last Taken Unknown] Tacrolimus [Prograf] 0.5 mg PO QHS 08/09/17 [Last Taken Unknown] Tacrolimus [Prograf] 1 mg PO DAILY 08/09/17 [Last Taken Unknown] Alcohol Antiseptic Pads [Alcohol Swabs] 1 each TP TID #90 med..pad 08/11/17 [ Last Taken Unknown] Blood Sugar Diagnostic [Accu-Chek Guide Test Strip] 1 each MC TID #90 strip [Last Taken Unknown] Blood-Glucose Meter [Accu-Chek Guide Monitor System] 1 each MC TID #1 each 08/11 [Last Taken Unknown] Glipizide [Glucotrol Xl] 2.5 mg PO DAILY #30 tab.er.24 08/11/17 [Last Taken Unknown] Insulin Detemir [Levemir Flextouch] 30 unit SQ QHS #1 syringe 08/11/17 [Last Taken Unknown] Discharge Plan - Discharge Instructions Diet at Discharge: Diabetic Diet Instructions: Insulin Aspart, Recombinant (By injection), Insulin Detemir (By injection), How to Check Your Blood Sugar (GEN), Foot Care for People with Diabetes (GEN), Hypoglycemia in a Person with Diabetes (GEN), Type 2 Diabetes in Adults (GEN), Meal Planning with Diabetes Exchanges (GEN), Managing Diabetes During Sick Days (GEN), Diabetic Foot Ulcers (GEN), Diabetic Hyperglycemia (GEN) , Diabetes and Your Skin (GEN), Hemoglobin A1c (GEN) Additional Instructions: To follow up with Dr. Molina in clinic in 5-10 days as schedule permits. I will update [facility] desk with details in the morning. Quality Measures - Quality Measures Quality Measures: Advance Directives, Documentation of Current Medications in Medical Record, Elder Maltreatment Screen and Follow-Up Plan, Screening for High Blood Pressure and F/U Documented - Current Medications Quality Measure: Measure #130: Documentation of Current Medications - Blood Pressure Screening Quality Measure: Screening for High Blood Pressure and Follow-Up Documented Blood Pressure Classification: Hypertensive Reading Systolic Measurement: 125 Diastolic Measurement: 90 - Advance Directives Quality Measure: Measure #47: Care Plan Advance Directives Established: No Advance Directives Information Provided To Patient: No Advance Directives on File: No Living Will: Yes Power of Clinical Lab Technologist: Yes Power of Clinical Lab Technologist Name: anthony raya - Elder Abuse Suspicion Index Screening: Elder Abuse Suspicion Index Screening Rely on people for bathing, dressing, shopping, banking, etc: No Prevented from getting food, clothes, medication, etc: No Made to feel shamed or threatened by someone: No Forced to sign papers or use money against will: No Feel afraid, touched in ways not wanted or hurt physically: No Poor eye contact, withdrawn, malnourished, cuts or bruises: No Screening Result: Negative result EASI Reference Information: Bernard MCMULLEN, Mulu C, Joseph D, Kaila Bailey.Development and validation of a tool to assist physicians identification of elder abuse: The Elder Abuse Suspicion Index (EASI ). Journal of Elder Abuse and Neglect, 2008; 20 (3): 276-300. - Elder Maltreatment Screen Quality Measures: Elder Maltreatment Screen and Follow-Up Plan Elder Maltreatment Screen: <Negative, No Follow-Up Plan Required> [[id number]]
[2017-08-11] MEDS: AMLODIPINE 10 MG PO SCH (10:17)
[2017-08-11] MEDS: MYCOPHENOLATE 500 MG PO SCH (10:17)
[2017-08-11] MEDS: LISINOPRIL 20 MG PO SCH (10:17)
[2017-08-11] MEDS: TACROLIMUS 1 MG PO SCH (10:17)
[2017-08-11] MEDS: VITAMIN D3 PO SCH (10:17)
== END 2017-08-11 11:50 | disposition home or self-care (01) | DRG 638 ==
LOC: ER 14:48 → OBSVTOIN 19:08 → MEDSURG 19:08
PROVIDERS: ADMIT Internal Medicine; ATTEND Internal Medicine
DX: E11.9 Type 2 diabetes mellitus without complications (principal); Z79.84 Long term (current) use of oral hypoglycemic drugs; Z94.0 Kidney transplant status; Z79.4 Long term (current) use of insulin; Q61.3 Polycystic kidney, unspecified; I10 Essential (primary) hypertension
CPT/HCPCS: 36416; 80048; 81003; 82009; 82800; 82948; 83036; 83880; 85025; 93005; 93010; 93041; 96365; 96372; 99223; 99239; 99285; J7030